=== PATIENT | female | born 1975 | race Caucasian/White ===

== ENCOUNTER → 2020-12-11 | Outpatient (CLI) | payer BC ==
[~2020-12-11] MED LIST: LORTAB 5-325 M1 EACH PO
== END ==
LOC: KOH-I 14:15
DX: M54.2 Cervicalgia (principal)
CPT/HCPCS: 72040

== ENCOUNTER → 2021-05-28 | Outpatient (CLI) | payer BC | LOC: KOH-I 12:46 | DX: M25.572 Pain in left ankle and joints of left foot (principal); M79.672 Pain in left foot | CPT/HCPCS: 73610; 73630 ==

== ENCOUNTER 2021-08-26 13:36 | Emergency (ER) | payer BC ==
[~2021-08-26] VITALS: Ht 167.6 cm; Wt 83.9 kg
== END 2021-08-26 20:15 | disposition home or self-care (01) ==
LOC: ER1 13:36
DX: U07.1 COVID-19 (principal); Z23 Encounter for immunization; E11.9 Type 2 diabetes mellitus without complications; I10 Essential (primary) hypertension; F17.210 Nicotine dependence, cigarettes, uncomplicated
CPT/HCPCS: 99284; M0245; U0002